=== PATIENT | female | born 1955 | race Caucasian/White ===

== ENCOUNTER 2024-05-28 12:10 | Inpatient (IN) ==
--- NOTE | 2024-05-28 14:39 | DR.NAUSEAF ---
HPI Time Seen Time Seen by Provider: 05/28/24 14:35 Primary Care Physician Primary Care Physician: Keely Complaints Chief Complaint Doctors Comments: 68-year-old female, history of breast cancer, currently undergoing chemo, last chemo treatment 7 days ago, complains of continued vomiting 6-7 times daily since. Admits to chills the past couple days. Denies other symptoms. Denies abdominal pain, chest pain, dyspnea, cough, urinary symptoms. Chief Complaint:: Pt states she's been throwing up for the last three days and has no appetite. Admits chills and a stomach ache. Denies fever. Pt is on Chemo for breast CA. Last treatment was lsat . Self Treatment fo Chief Complaint: negar @ 1000 today COVID-19 Coronavirus risk:travel/contact w/high risk person: No Has patient experienced Coronavirus symptoms: No Source History Provided: Patient Mode of Arrival Mode of Arrival: Ambulatory Timing Onset of Chief Complaint: 05/25/24 PMH PMH Past Medical History: Yes Past Medical History: Cancer Past Medical History Comment: Breast CA Past Surgical History: Yes Surgical History: and Hysterectomy Family History History of Family Medical Conditions: Yes Family Medical History: Cancer Social History Alcohol Use: None Do you use any recreational Drugs:: No Lives With: Spouse Lives Where: Home Travel Risk Coronavirus risk:travel/contact w/high risk person: No Has patient experienced Coronavirus symptoms: No Infectious screening Have you traveled outside the country in the last 6 months?: No Isolation: Standard ROS Review of Systems Constitutional: Chills; negative Fever Gastrointestinal/Abdominal: Vomiting; negative Abdominal Pain or Diarrhea Genitourinary: negative Dysuria, Frequency, Hematuria or Pain PE Vital Signs Vitals: Vital Signs Pulse Rate 127 Pulse Rate 129 Pulse Rate 129 Pulse Rate 130 Pulse Rate 130 Pulse Rate 128 Pulse Rate 135 Pulse Rate 132 Pulse Rate 131 Pulse Rate 130 Pulse Rate 130 Pulse Rate 137 Pulse Rate 137 Pulse Rate 133 Pulse Rate 145 Pulse Rate 138 Pulse Rate 138 Pulse Rate 138 Pulse Rate 138 Pulse Rate 140 Pulse Rate 141 Pulse Rate 141 Pulse Rate 141 Pulse Rate 144 Pulse Rate 140 Pulse Rate 140 Pulse Rate 138 Pulse Rate 136 Pulse Rate 134 Pulse Rate 124 Pulse Rate 115 Pulse Rate 104 Pulse Rate 102 Pulse Rate 98 Pulse Rate 100 Pulse Rate 100 Pulse Rate 110 Pulse Rate 101 Pulse Rate 110 Pulse Rate 109 Pulse Rate 108 Pulse Rate 111 Pulse Rate 107 Pulse Rate 110 Pulse Rate 112 Respiratory Rate 50 Respiratory Rate 50 Respiratory Rate 50 Respiratory Rate 28 Respiratory Rate 54 Respiratory Rate 82 Respiratory Rate 78 Respiratory Rate 28 Respiratory Rate 26 Respiratory Rate 31 Respiratory Rate 36 Respiratory Rate 36 Respiratory Rate 39 Respiratory Rate 30 Respiratory Rate 32 Respiratory Rate 34 Respiratory Rate 28 Respiratory Rate 31 Respiratory Rate 28 Respiratory Rate 32 Respiratory Rate 33 Respiratory Rate 31 Respiratory Rate 32 Respiratory Rate 33 Respiratory Rate 32 Respiratory Rate 32 Respiratory Rate 40 Respiratory Rate 119 Respiratory Rate 30 Respiratory Rate 29 Respiratory Rate 27 Respiratory Rate 30 Respiratory Rate 25 Respiratory Rate 28 Respiratory Rate 21 Respiratory Rate 30 Respiratory Rate 25 Respiratory Rate 28 Respiratory Rate 25 Respiratory Rate 40 Respiratory Rate 51 Respiratory Rate 30 Respiratory Rate 31 Respiratory Rate 45 Respiratory Rate 58 Respiratory Rate 34 Blood Pressure 115/56 Blood Pressure 92/55 Blood Pressure 92/55 Blood Pressure 92/55 Blood Pressure 92/55 Blood Pressure 92/55 Blood Pressure 97/52 Blood Pressure 97/52 Blood Pressure 106/57 Blood Pressure 104/61 Blood Pressure 103/57 Blood Pressure 102/53 Blood Pressure 106/55 Blood Pressure 106/59 Blood Pressure 116/54 Blood Pressure 107/57 Blood Pressure 114/54 Blood Pressure 96/53 Blood Pressure 95/51 Blood Pressure 89/49 Blood Pressure 83/48 Blood Pressure 80/43 Blood Pressure 80/43 Blood Pressure 79/30 Blood Pressure 114/56 Blood Pressure 127/61 Blood Pressure 134/63 Blood Pressure 151/66 Blood Pressure 151/66 Blood Pressure 164/74 Blood Pressure 153/71 Blood Pressure 153/68 Blood Pressure 159/69 Blood Pressure 152/71 Blood Pressure 161/71 Blood Pressure 167/74 O2 Sat by Pulse Oximetry 99 O2 Sat by Pulse Oximetry 99 O2 Sat by Pulse Oximetry 99 O2 Sat by Pulse Oximetry 99 O2 Sat by Pulse Oximetry 99 O2 Sat by Pulse Oximetry 99 O2 Sat by Pulse Oximetry 98 O2 Sat by Pulse Oximetry 100 O2 Sat by Pulse Oximetry 100 O2 Sat by Pulse Oximetry 100 O2 Sat by Pulse Oximetry 100 O2 Sat by Pulse Oximetry 100 O2 Sat by Pulse Oximetry 99 O2 Sat by Pulse Oximetry 98 O2 Sat by Pulse Oximetry 98 O2 Sat by Pulse Oximetry 97 O2 Sat by Pulse Oximetry 87 O2 Sat by Pulse Oximetry 100 O2 Sat by Pulse Oximetry 99 O2 Sat by Pulse Oximetry 98 O2 Sat by Pulse Oximetry 96 O2 Sat by Pulse Oximetry 96 O2 Sat by Pulse Oximetry 97 O2 Sat by Pulse Oximetry 95 O2 Sat by Pulse Oximetry 96 O2 Sat by Pulse Oximetry 92 O2 Sat by Pulse Oximetry 93 O2 Sat by Pulse Oximetry 92 O2 Sat by Pulse Oximetry 91 O2 Sat by Pulse Oximetry 90 O2 Sat by Pulse Oximetry 94 O2 Sat by Pulse Oximetry 93 O2 Sat by Pulse Oximetry 95 O2 Sat by Pulse Oximetry 96 O2 Sat by Pulse Oximetry 98 O2 Sat by Pulse Oximetry 98 O2 Sat by Pulse Oximetry 95 O2 Sat by Pulse Oximetry 96 O2 Sat by Pulse Oximetry 96 O2 Sat by Pulse Oximetry 94 O2 Sat by Pulse Oximetry 92 O2 Sat by Pulse Oximetry 107 O2 Sat by Pulse Oximetry 98 O2 Sat by Pulse Oximetry 99 General Limitations: No Limitations General Appearance: Alert and In No Apparent Distress Head Head Exam: Normal Inspection Eyes Eye exam: Normal Appearance ENT ENT Exam: Normal Exam Neck Neck Exam: Normal Inspection Chest Chest Inspection: Normal Inspection Respiratory Respiratory Exam: Normal Lung Sounds Bilat Respiratory Exam: Bilateral: Clear to Auscultation Cardiovascular Cardiovascular Exam: Regular Rate and Normal Rhythm Abdominal Exam Abdominal Exam: Normal Inspection, Normal Bowel Sounds and Soft Extremities Extremities Exam: Normal Inspection Back Back Exam: Normal Inspection Neurologic Neurological Exam: Alert and Oriented X3 Psychiatric Psychiatric Exam: Normal Affect and Normal Mood Skin Skin Exam: Warm, Dry, Intact and Normal Color ROR Labs Reviewed 05/28/24 14:49 05/28/24 14:49 Laboratory: WBC 3.6 X10^3/uL (3.6-10.0) 05/28/24 14:49 RBC 3.59 X10^6/uL (3.5-5.4) 05/28/24 14:49 Hgb 11.9 g/dL (12.0-16.0) L 05/28/24 14:49 Hct 34.0 % (36.0-47.0) L 05/28/24 14:49 MCV 94.8 fL (80.0-100.0) 05/28/24 14:49 MCH 33.2 pg (27.0-34.0) 05/28/24 14:49 MCHC 35.0 g/dL (33.0-35.0) 05/28/24 14:49 RDW 17.5 % (11.6-16.5) H 05/28/24 14:49 Plt Count 123 X10^3/uL (150.0-450.0) L 05/28/24 14:49 Plt Count Comment Adequate (ADEQUATE) 05/28/24 14:49 MPV 8.7 fL (7.4-11.0) 05/28/24 14:49 Neut % (Auto) 63.3 % (42.0-75.0) 05/28/24 14:49 Lymph % (Auto) 26.0 % (21.0-51.0) 05/28/24 14:49 [place] % (Auto) 10.3 % (0.0-13.0) 05/28/24 14:49 Eos % (Auto) 0.0 % (0.9-2.9) L 05/28/24 14:49 Baso % (Auto) 0.4 % (0.2-1.0) 05/28/24 14:49 Neut # (Auto) 2.2 x10^3/uL (2.2-4.8) 05/28/24 14:49 Lymph # (Auto) 0.9 X10^3/uL (1.3-2.9) L 05/28/24 14:49 [place] # (Auto) 0.4 x10^3/uL (0.3-0.8) 05/28/24 14:49 Eos # (Auto) 0.0 x10^3/uL (0.0-0.2) 05/28/24 14:49 Baso # (Auto) 0.0 X10^3/uL (0.0-0.1) 05/28/24 14:49 Absolute Nucleated RBC 0.1 /100WBC 05/28/24 14:49 Total Counted 100 05/28/24 14:49 Neutrophils % (Manual) 63 % (39-76) 05/28/24 14:49 Band Neutrophils % 3 % (0-10) 05/28/24 14:49 Lymphocytes % (Manual) 22 % (13-43) 05/28/24 14:49 Monocytes % (Manual) 12 % (4-9) H 05/28/24 14:49 Plt Morphology Comment Normal (NORMAL) 05/28/24 14:49 RBC Morphology Normal (NORMAL) 05/28/24 14:49 Sodium 138 mmol/L (136-145) 05/28/24 14:49 Corrected Sodium 139 mmol/L (136-145) 05/28/24 14:49 Potassium 2.7 mmol/L (3.5-5.1) L* 05/28/24 14:49 Chloride 91 mmol/L (98-107) L 05/28/24 14:49 Carbon Dioxide 41.5 mmol/L (21-32) H 05/28/24 14:49 BUN 31 mg/dL (7-18) H 05/28/24 14:49 Creatinine 1.12 mg/dL (0.55-1.02) H 05/28/24 14:49 Est GFR (MDRD) Af Amer > 60 (>60) 05/28/24 14:49 Est GFR (MDRD) Non-Af 52 (>60) L 05/28/24 14:49 Glucose 136 mg/dL (65-99) H 05/28/24 14:49 Lactic Acid 5.8 mmol/L (0.4-2.0) H* 05/28/24 18:38 Calcium 9.3 mg/dL (8.5-10.1) 05/28/24 14:49 Corrected Calcium TNP 05/28/24 14:49 Magnesium 1.2 mg/dL (2.0-2.9) L 05/28/24 18:00 Total Bilirubin 0.90 mg/dL (0.2-1.0) 05/28/24 14:49 AST 20 Units/L (15-37) 05/28/24 14:49 ALT 28 Units/L (12-78) 05/28/24 14:49 Alkaline Phosphatase 148 Units/L (46-116) H 05/28/24 14:49 Creatine Kinase 24 Units/L (26-192) L 05/28/24 18:00 Troponin I High Sens 26.5 ng/L (4.0-60.0) 05/28/24 18:00 Total Protein 7.7 g/dL (6.4-8.2) 05/28/24 14:49 Albumin 4.2 g/dL (3.4-5.0) 05/28/24 14:49 Globulin 3.5 g/dL (2.5-4.5) 05/28/24 14:49 Albumin/Globulin Ratio 1.2 Ratio (1.1-2.1) 05/28/24 14:49 Lipase 43 Units/L (16-77) 05/28/24 14:49 Specimen Type Clean catch urine 05/28/24 15:00 Urine Color Dark yellow (YELLOW) 05/28/24 15:00 Urine Appearance Slightly hazy (CLEAR) 05/28/24 15:00 Urine pH 6.0 (5.0 - 8.0) 05/28/24 15:00 Ur Specific [place] 1.015 (1.000-1.030) 05/28/24 15:00 Urine Protein 3+ (NEGATIVE) 05/28/24 15:00 Urine Glucose (UA) 1+ (NEGATIVE) 05/28/24 15:00 Urine Ketones Negative (NEGATIVE) 05/28/24 15:00 Urine Blood 1+ (NEGATIVE) 05/28/24 15:00 Urine Nitrite Negative (NEGATIVE) 05/28/24 15:00 Urine Bilirubin Negative (NEGATIVE) 05/28/24 15:00 Urine Urobilinogen 1+ (NORMAL) 05/28/24 15:00 Ur Leukocyte Esterase 2+ (NEGATIVE) 05/28/24 15:00 Urine RBC 3-5 /HPF (0-3) A 05/28/24 15:00 Urine WBC 3-5 /HPF (0-5) 05/28/24 15:00 Ur Squamous Epith Cells Few /HPF (NEGATIVE) 05/28/24 15:00 Amorphous Sediment 2+ /HPF (NEGATIVE) 05/28/24 15:00 Urine Bacteria Negative /HPF (NEGATIVE) 05/28/24 15:00 Urine Mucus Many /HPF (NEGATIVE) 05/28/24 15:00 Ur Culture Indicated? No/not indicated 05/28/24 15:00 Opioid Opioid Risk Tool Age (Norbert box if 16-45): No History of Preadolescent Sexual Abuse: No Total: 0 Total Score Risk Category: Low Risk Copyright: Clifton ALVARADO predicting aberrant behaviors Discharge Plan Diagnosis Discharge Problem: Vomiting, Urinary tract infection, Hypokalemia, Breast cancer, Hypomagnesemia Discharge Plan Patient Disposition: 01 HOME, SELF-CARE Condition: Stable Orders to Discharge Patient Discharge Orders: Transfer (Routine); Ordered 05/28/24 Ordered By: Adrian Purvis
[2024-05-28 14:58] LABS: HEMOGLOBIN 11.9 g/dL (12.0-16.0)
[2024-05-28] MEDS: NS 1,000 ML IV 1,000 ML IV ONE ×3 (15:00→19:42)
[2024-05-28] MEDS: ZOFRAN INJ 4 MG VIAL IVP ONE ×2 (15:00→15:13)
[2024-05-28 15:01] LABS: LYMPHOCYTES # (AUTO) 0.9 X10^3/uL (1.3-2.9); MONOCYTES # (AUTO) 0.4 x10^3/uL (0.3-0.8); WHITE BLOOD COUNT 3.6 X10^3/uL (3.6-10.0)
[2024-05-28 15:06] LABS: BASOPHILS % (AUTO) 0.4 % (0.2-1.0); MEAN CORPUSCULAR HEMOGLOBIN 33.2 pg (27.0-34.0); MEAN CORPUSCULAR VOLUME 94.8 fL (80.0-100.0); MEAN PLATELET VOLUME 8.7 fL (7.4-11.0); MONOCYTES % (AUTO) 10.3 % (0.0-13.0); NEUTROPHILS # (AUTO) 2.2 x10^3/uL (2.2-4.8); NEUTROPHILS % (AUTO) 63.3 % (42.0-75.0); PLATELET COUNT 123 X10^3/uL (150.0-450.0); RED BLOOD COUNT 3.59 X10^6/uL (3.5-5.4); RED CELL DISTRIBUTION WIDTH 17.5 % (11.6-16.5)
[2024-05-28 15:14] LABS: ALANINE AMINOTRANSFERASE 28 Units/L (12-78); ALBUMIN 4.2 g/dL (3.4-5.0); ALKALINE PHOSPHATASE 148 Units/L (46-116); ASPARTATE AMINO TRANSFERASE 20 Units/L (15-37); BLOOD UREA NITROGEN 31 mg/dL (7-18); CALCIUM 9.3 mg/dL (8.5-10.1); CARBON DIOXIDE 41.5 mmol/L (21-32); CHLORIDE 91 mmol/L (98-107); COR NA(FOR HYPERGLY) 139 mmol/L (136-145); CREATININE 1.12 mg/dL (0.55-1.02); GLUCOSE 136 mg/dL (65-99); LIPASE 43 Units/L (16-77); SODIUM 138 mmol/L (136-145); TOTAL PROTEIN 7.7 g/dL (6.4-8.2); eGFR NON BLACK RACES 52 (>60)
[2024-05-28] MEDS: MORPHINE SULFATE INJ 4 MG IVP ONE (15:16)
[2024-05-28 15:18] LABS: BAND NEUTROPHILS % 3 % (0-10)
[2024-05-28 15:19] LABS: PLATELET MORPHOLOGY COMMENT NORMAL (NORMAL)
[2024-05-28 15:21] LABS: POTASSIUM 2.7 mmol/L (3.5-5.1)
[2024-05-28 15:30] LABS: BILIRUBIN,URINE NEGATIVE (NEGATIVE); BLOOD/HEMOGLOBIN,URINE 1+ (NEGATIVE); GLUCOSE, URINE 1+ (NEGATIVE); KETONES,URINE NEGATIVE (NEGATIVE); LEUKOCYTE ESTERASE ,URINE 2+ (NEGATIVE); NITRITES,URINE NEGATIVE (NEGATIVE); PROTEIN,URINE 3+ (NEGATIVE); UROBILINOGEN,URINE 1+ (NORMAL)
[2024-05-28 15:35] LABS: APPEARANCE,URINE SLIGHTLY HAZY (CLEAR); COLOR,URINE DARK YELLOW (YELLOW)
[2024-05-28] MEDS: K-DUR TAB 20 MEQ PO ONE ×2 (15:47→17:09)
[2024-05-28 16:08] LABS: BACTERIA,URINE NEGATIVE /HPF (NEGATIVE); SQUAMOUS EPITHELIAL CELL,UR FEW /HPF (NEGATIVE)
--- NOTE | 2024-05-28 16:43 | EKG ---
Test Reason : elevated heart rate Blood Pressure : */* mmHG Vent. Rate : 134 BPM Atrial Rate : 134 BPM P-R Int : 104 ms QRS Dur : 84 ms QT Int : 394 ms P-R-T Axes : 39 63 37 degrees QTc Int : 588 ms Sinus tachycardia with short [place] Marked ST abnormality, possible inferolateral subendocardial injury Abnormal ECG No previous ECGs available Confirmed by Itz Laboy MD ([id number]) on 05/29/2024 7:21:25 AM Referred By: Confirmed By: Itz Laboy MD
--- NOTE | 2024-05-28 18:48 | RAD ---
EXAM:CHEST, 1 VIEWHISTORY:Pt states she's been throwing up for the last three days and has no appetite. Admits chills and a stomach ache. Denies fever. Pt is on Chemo for breast CA. Last treatment was lsat;COMPARISON:No relevant prior studies were available for comparison at the time of interpretation.TECHNIQUE:CHEST, 1 VIEWFINDINGS:Chest:Lines and tubes: Right sided implanted port with tip in satisfactory position. Cardiac leads overlie the chestMediastinum: Cardiac and mediastinal shadow is within normal limits for size and contour.Pulmonary vessels: No pulmonary vascular congestion.Lung tamez: No suspicious airspace opacity.Pleura: No effusion. No pneumothorax.Bones and soft tissues: No acute osseous or soft tissue abnormality.IMPRESSION:1. No acute cardiopulmonary abnormalityTHIS IS AN ELECTRONICALLY VERIFIED FINAL [id number]/2024 6:45 PM - Electronically signed by Alex Soria MD
[2024-05-28] MEDS ORDERED: MAGNESIUM SULFATE 50% INJ VIAL IV ONE (19:15)
[2024-05-28] MEDS ORDERED: ROCEPHIN VIAL 2 GRAMS IV ONE (19:19)
[2024-05-28] MEDS: MAGNESIUM SULFATE 1 GRAM/100 mL PREMIX 1 G/100 ML BAG IV SCH (19:41)
[2024-05-28] MEDS: ROCEPHIN VIAL 1 GRAM 2 G in NS 100 ML IV 100 ML IV ONE (19:43)
[2024-05-28] MEDS ORDERED: CONSULT PHARMACY - POTASSIUM & MAGNESIUM XX SCH (20:43)
[2024-05-28] MEDS: NS 1,000 ML IV 1,000 ML IV SCH (21:09)
[2024-05-28] MEDS ORDERED: MAGNESIUM SULFATE 1 GRAM/100 mL PREMIX 1 G/100 ML BAG IV SCH (22:00)
[2024-05-28] MEDS: K-RIDER 10 MEQ/100 ML WATER 10 MEQ/100 ML BAG IV SCH (23:04)
[2024-05-28] MEDS: NS 1,000 ML IV 1,000 ML ONE (23:43)
[2024-05-28] MEDS: NS 100 ML IV 100 ML ONE (23:43)
[2024-05-28] MEDS: ROCEPHIN VIAL 1 GRAM ONE (23:43)
[2024-05-29] MEDS: ZOFRAN INJ 4 MG VIAL IVP PRN (03:01)
[2024-05-29 05:38] LABS: BASOPHILS % (AUTO) 0.1 % (0.2-1.0); EOSINOPHILS % (AUTO) 0.1 % (0.9-2.9); HEMATOCRIT 28.8 % (36.0-47.0); HEMOGLOBIN 10.2 g/dL (12.0-16.0); LYMPHOCYTES # (AUTO) 0.4 X10^3/uL (1.3-2.9); LYMPHOCYTES % (AUTO) 13.7 % (21.0-51.0); MEAN CORPUSCULAR HEMOGLOBIN 33.8 pg (27.0-34.0); MEAN CORPUSCULAR HGB CONC 35.4 g/dL (33.0-35.0); MEAN CORPUSCULAR VOLUME 95.7 fL (80.0-100.0); MEAN PLATELET VOLUME 9.1 fL (7.4-11.0); MONOCYTES # (AUTO) 0.4 x10^3/uL (0.3-0.8); MONOCYTES % (AUTO) 15.2 % (0.0-13.0); NEUTROPHILS # (AUTO) 1.9 x10^3/uL (2.2-4.8); NEUTROPHILS % (AUTO) 70.9 % (42.0-75.0); PLATELET COUNT 61 X10^3/uL (150.0-450.0); RED BLOOD COUNT 3.01 X10^6/uL (3.5-5.4); RED CELL DISTRIBUTION WIDTH 17.7 % (11.6-16.5); WHITE BLOOD COUNT 2.6 X10^3/uL (3.6-10.0)
[2024-05-29 05:47] LABS: ALBUMIN 3.1 g/dL (3.4-5.0); CALCIUM 8.1 mg/dL (8.5-10.1); CARBON DIOXIDE 33.1 mmol/L (21-32); COR CA(FOR HYPOALB) 8.8 mg/dL (8.5-10.1); CREATININE 1.17 mg/dL (0.55-1.02); MAGNESIUM 2.5 mg/dL (2.0-2.9); TOTAL PROTEIN 6.1 g/dL (6.4-8.2)
[2024-05-29 05:50] LABS: POTASSIUM 2.8 mmol/L (3.5-5.1)
[2024-05-29 06:45] LABS: ANISOCYTOSIS SLIGHT; PLATELET MORPHOLOGY COMMENT NORMAL (NORMAL)
[2024-05-29] MEDS ORDERED: CONSULT PHARMACY - POTASSIUM & MAGNESIUM XX SCH (07:00)
[2024-05-29] MEDS: K-RIDER 10 MEQ/100 ML WATER 10 MEQ/100 ML BAG IV SCH (08:24)
[2024-05-29 09:27] VITALS: BMI 30.3
[2024-05-29] MEDS: PROTONIX INJ 40 MG VIAL IVP SCH (12:26)
[2024-05-29] MEDS: NS + KCL 20 MEQ/L 1,000 ML IV SCH (12:26)
[2024-05-29 13:15] LABS: CRYPTOSPORIDIUM PARVUM ANTIGEN NEGATIVE (NEGATIVE); GIARDIA LAMBLIA ANTIGEN NEGATIVE (NEGATIVE)
[2024-05-29] MEDS: ROCEPHIN VIAL 1 GRAM 1 G in NS 100 ML IV 100 ML IV SCH (16:24)
--- NOTE | 2024-05-29 17:58 | DR.H&P ---
H&P History & Physical for Day of: H&P Date: 05/28/24 Chief Complaint Chief Complaint: N/V/D History of Present Illness History of Present Illness: 68-year-old female, history of breast cancer, currently undergoing chemo, last chemo treatment 7 days ago, complains of continued vomiting 6-7 times daily since. Admits to chills the past couple days. Denies other symptoms. Denies abdominal pain, chest pain, dyspnea, cough, urinary symptoms. Past Medical History Past Medical History: Cancer Past Surgical History Surgical History: and Hysterectomy Family History Family Medical History: Cancer and Hypertension Social History Alcohol Use: None Drug Use: None Medications Home Medications: Home Medications Medication Instructions Recorded Confirmed Type amlodipine 5 mg tablet 5 mg PO QDAY 05/29/24 05/29/24 History ondansetron 4 mg disintegrating 4 mg PO PRN PRN Nausea And Vomiting 05/29/24 05/29/24 History tablet Allergies Allergies Allergy/AdvReac Type Severity Reaction Status Date / Time No Known Drug Allergies Allergy Verified 05/28/24 12:17 Labs 05/29/24 05:20 05/29/24 05:20 Labs: 05/29/24 11:30 Stool - Final Laboratory WBC 2.6 X10^3/uL (3.6-10.0) L 05/29/24 05:20 RBC 3.01 X10^6/uL (3.5-5.4) L 05/29/24 05:20 Hgb 10.2 g/dL (12.0-16.0) L 05/29/24 05:20 Hct 28.8 % (36.0-47.0) L 05/29/24 05:20 MCV 95.7 fL (80.0-100.0) 05/29/24 05:20 MCH 33.8 pg (27.0-34.0) 05/29/24 05:20 MCHC 35.4 g/dL (33.0-35.0) H 05/29/24 05:20 RDW 17.7 % (11.6-16.5) H 05/29/24 05:20 Plt Count 61 X10^3/uL (150.0-450.0) L 05/29/24 05:20 Plt Count Comment Decreased (ADEQUATE) A 05/29/24 05:20 MPV 9.1 fL (7.4-11.0) 05/29/24 05:20 Neut % (Auto) 70.9 % (42.0-75.0) 05/29/24 05:20 Lymph % (Auto) 13.7 % (21.0-51.0) L 05/29/24 05:20 [place] % (Auto) 15.2 % (0.0-13.0) H 05/29/24 05:20 Eos % (Auto) 0.1 % (0.9-2.9) L 05/29/24 05:20 Baso % (Auto) 0.1 % (0.2-1.0) L 05/29/24 05:20 Neut # (Auto) 1.9 x10^3/uL (2.2-4.8) L 05/29/24 05:20 Lymph # (Auto) 0.4 X10^3/uL (1.3-2.9) L 05/29/24 05:20 [place] # (Auto) 0.4 x10^3/uL (0.3-0.8) 05/29/24 05:20 Eos # (Auto) 0.0 x10^3/uL (0.0-0.2) 05/29/24 05:20 Baso # (Auto) 0.0 X10^3/uL (0.0-0.1) 05/29/24 05:20 Absolute Nucleated RBC 0.1 /100WBC 05/29/24 05:20 Total Counted 100 05/29/24 05:20 Neutrophils % (Manual) 64 % (39-76) 05/29/24 05:20 Band Neutrophils % 3 % (0-10) 05/28/24 14:49 Lymphocytes % (Manual) 24 % (13-43) 05/29/24 05:20 Monocytes % (Manual) 12 % (4-9) H 05/29/24 05:20 Plt Morphology Comment Normal (NORMAL) 05/29/24 05:20 RBC Morphology Abnormal (NORMAL) A 05/29/24 05:20 Anisocytosis Slight A 05/29/24 05:20 Sodium 139 mmol/L (136-145) 05/29/24 05:20 Corrected Sodium 140 mmol/L (136-145) 05/29/24 05:20 Potassium 2.8 mmol/L (3.5-5.1) L* 05/29/24 05:20 Chloride 98 mmol/L (98-107) 05/29/24 05:20 Carbon Dioxide 33.1 mmol/L (21-32) H 05/29/24 05:20 BUN 28 mg/dL (7-18) H 05/29/24 05:20 Creatinine 1.17 mg/dL (0.55-1.02) H 05/29/24 05:20 Est GFR (MDRD) Af Amer 60 (>60) 05/29/24 05:20 Est GFR (MDRD) Non-Af 49 (>60) L 05/29/24 05:20 Glucose 145 mg/dL (65-99) H 05/29/24 05:20 Lactic Acid 2.0 mmol/L (0.4-2.0) 05/29/24 15:56 Calcium 8.1 mg/dL (8.5-10.1) L 05/29/24 05:20 Corrected Calcium 8.8 mg/dL (8.5-10.1) 05/29/24 05:20 Magnesium 2.5 mg/dL (2.0-2.9) 05/29/24 05:20 Total Bilirubin 0.70 mg/dL (0.2-1.0) 05/29/24 05:20 AST 22 Units/L (15-37) 05/29/24 05:20 ALT 25 Units/L (12-78) 05/29/24 05:20 Alkaline Phosphatase 123 Units/L (46-116) H 05/29/24 05:20 Creatine Kinase 24 Units/L (26-192) L 05/28/24 18:00 Troponin I High Sens 26.5 ng/L (4.0-60.0) 05/28/24 18:00 Total Protein 6.1 g/dL (6.4-8.2) L 05/29/24 05:20 Albumin 3.1 g/dL (3.4-5.0) L 05/29/24 05:20 Globulin 3.0 g/dL (2.5-4.5) 05/29/24 05:20 Albumin/Globulin Ratio 1.0 Ratio (1.1-2.1) L 05/29/24 05:20 Lipase 43 Units/L (16-77) 05/28/24 14:49 Specimen Type Clean catch urine 05/28/24 15:00 Urine Color Dark yellow (YELLOW) 05/28/24 15:00 Urine Appearance Slightly hazy (CLEAR) 05/28/24 15:00 Urine pH 6.0 (5.0 - 8.0) 05/28/24 15:00 Ur Specific [place] 1.015 (1.000-1.030) 05/28/24 15:00 Urine Protein 3+ (NEGATIVE) 05/28/24 15:00 Urine Glucose (UA) 1+ (NEGATIVE) 05/28/24 15:00 Urine Ketones Negative (NEGATIVE) 05/28/24 15:00 Urine Blood 1+ (NEGATIVE) 05/28/24 15:00 Urine Nitrite Negative (NEGATIVE) 05/28/24 15:00 Urine Bilirubin Negative (NEGATIVE) 05/28/24 15:00 Urine Urobilinogen 1+ (NORMAL) 05/28/24 15:00 Ur Leukocyte Esterase 2+ (NEGATIVE) 05/28/24 15:00 Urine RBC 3-5 /HPF (0-3) A 05/28/24 15:00 Urine WBC 3-5 /HPF (0-5) 05/28/24 15:00 Ur Squamous Epith Cells Few /HPF (NEGATIVE) 05/28/24 15:00 Amorphous Sediment 2+ /HPF (NEGATIVE) 05/28/24 15:00 Urine Bacteria Negative /HPF (NEGATIVE) 05/28/24 15:00 Urine Mucus Many /HPF (NEGATIVE) 05/28/24 15:00 Ur Culture Indicated? No/not indicated 05/28/24 15:00 Stl Occult Blood (IFOB) Positive (NEGATIVE) A 05/29/24 11:30 Stl C. diff Tox B Gene Negative (NEGATIVE) 05/29/24 11:30 Stl C. diff [id number] Presumptive negative (NEGATIVE) 05/29/24 11:30 Cryptosporid parvum Ag Negative (NEGATIVE) 05/29/24 11:30 Giardia lamblia Ag Negative (NEGATIVE) 05/29/24 11:30 Review of Systems Constitutional: Chills and Weakness Eyes: No Symptoms Reported ENT: No Symptoms Reported Respiratory: SOB with Excertion Cardiovascular: No Symptoms Reported Gastrointestinal: Nausea, Vomiting, Abdominal Pain and Diarrhea Genitourinary: No Symptoms Reported Musculoskeletal: Back Pain Skin: No Symptoms Reported Neurological: Weakness (MILD DIFFUSE) Physical Exam Vital Signs: Vital Signs Temperature 97.9 F Temperature 97.1 F Pulse Rate [Left Radial] 111 Pulse Rate [Left Radial] 113 Respiratory Rate 18 Respiratory Rate 19 Blood Pressure [Right Arm] 136/76 Blood Pressure [Right Arm] 129/63 O2 Sat by Pulse Oximetry 94 O2 Sat by Pulse Oximetry 92 Oriented: Normal Eyes: Normal Ear: Normal Nose: Normal Throat: Normal Respiratory: RLL Diminished and LLL Diminished Cardiovascular: Normal : Normal Auscultation: Bowel Sounds: Increased Palpation: Normal Tenderness: Diffuse Skin: Decreased Turgur Musculoskeletal: Back:Lumbar Psychiatric: Normal Mood Description: Calm Affect: Normal Speech Pattern: Clear and Appropriate Assessment/Plan (1) Acute gastroenteritis: Status: Acute Plan: ADMIT, IV HYDRATION ELECTROLYTE REPLACEMENT THERAPY PRN SUPPLEMENTAL O2 STOOL STUDIES VERIFY HOME MEDICATIONS (2) Urinary tract infection: Status: Acute (3) Hypokalemia: Status: Acute (4) Breast cancer: Status: Acute (5) Vomiting: Status: Acute (6) Hypomagnesemia: Status: Acute
[2024-05-29] MEDS: BENTYL CAP 10 MG PO SCH (18:22)
[2024-05-29] MEDS: K-DUR TAB 20 MEQ PO SCH (21:07)
[2024-05-30 06:12] LABS: ALANINE AMINOTRANSFERASE 24 Units/L (12-78); ALBUMIN 2.5 g/dL (3.4-5.0); ALKALINE PHOSPHATASE 102 Units/L (46-116); ASPARTATE AMINO TRANSFERASE 17 Units/L (15-37); BLOOD UREA NITROGEN 18 mg/dL (7-18); CALCIUM 7.9 mg/dL (8.5-10.1); CARBON DIOXIDE 24.6 mmol/L (21-32); CHLORIDE 106 mmol/L (98-107); COR CA(FOR HYPOALB) 9.1 mg/dL (8.5-10.1); CREATININE 0.67 mg/dL (0.55-1.02); GLUCOSE 105 mg/dL (65-99); MAGNESIUM 2.3 mg/dL (2.0-2.9); SODIUM 140 mmol/L (136-145); TOTAL PROTEIN 5.5 g/dL (6.4-8.2); eGFR NON BLACK RACES > 60 (>60)
[2024-05-30 06:16] LABS: BASOPHILS % (AUTO) 0.3 % (0.2-1.0); EOSINOPHILS % (AUTO) 0.2 % (0.9-2.9); HEMATOCRIT 24.2 % (36.0-47.0); HEMOGLOBIN 8.5 g/dL (12.0-16.0); LYMPHOCYTES % (AUTO) 24.9 % (21.0-51.0); MEAN CORPUSCULAR HEMOGLOBIN 33.6 pg (27.0-34.0); MEAN CORPUSCULAR HGB CONC 35.3 g/dL (33.0-35.0); MEAN CORPUSCULAR VOLUME 95.1 fL (80.0-100.0); MEAN PLATELET VOLUME 9.6 fL (7.4-11.0); MONOCYTES # (AUTO) 0.5 x10^3/uL (0.3-0.8); MONOCYTES % (AUTO) 11.9 % (0.0-13.0); NEUTROPHILS # (AUTO) 2.5 x10^3/uL (2.2-4.8); NEUTROPHILS % (AUTO) 62.7 % (42.0-75.0); PLATELET COUNT 61 X10^3/uL (150.0-450.0); RED BLOOD COUNT 2.54 X10^6/uL (3.5-5.4); RED CELL DISTRIBUTION WIDTH 16.7 % (11.6-16.5); WHITE BLOOD COUNT 3.9 X10^3/uL (3.6-10.0)
[2024-05-30 06:23] LABS: POTASSIUM 2.9 mmol/L (3.5-5.1)
[2024-05-30] MEDS ORDERED: CONSULT PHARMACY - POTASSIUM & MAGNESIUM XX SCH (07:00)
[2024-05-30 07:04] LABS: BAND NEUTROPHILS % 2 % (0-10); PLATELET MORPHOLOGY COMMENT NORMAL (NORMAL)
[2024-05-30] MEDS ORDERED: NS + KCL 40 MEQ/L 1,000 ML IV SCH (08:00)
--- NOTE | 2024-05-30 08:15 | RAD ---
EXAM:KUBHISTORY:abd pain, distention;COMPARISON:None.TECHNIQUE:Sup ine radiograph of the abdomenFINDINGS:Marked distention of the gastric lumen which is radiopaque indicating probable fluid distention. There is sparse bowel gas throughout the abdomen with small amounts of gas outlining the normal caliber right colon. No other conspicuous dilated bowel segments are demonstrated, within limitations of exam. Imaged lung bases are predominantly clear. No unusual intra-calcification forms are identified.IMPRESSION:Nonspecific bowel gas pattern with the severe fluid distention of the gastric lumen.Sparse bowel gas throughout the remainder of the abdomen with no additional pathologically distended bowel segments identified, within limitations of exam.Consider CT evaluation for more detailed characterization. Consider NG tube decompression of the gastric lumen.THIS IS AN ELECTRONICALLY VERIFIED FINAL [id number]/2024 8:11 AM - Electronically signed by Kingsley Melgoza MD
[2024-05-30] MEDS ORDERED: K-RIDER 10 MEQ/100 ML WATER 10 MEQ/100 ML BAG IV SCH (09:00)
[2024-05-30] MEDS: NS + KCL 20 MEQ/L 1,000 ML IV SCH (10:04)
[2024-05-30] MEDS: K-DUR TAB 20 MEQ PO SCH (10:08)
[2024-05-30] MEDS: READI-CAT 2 ONE (12:16)
--- NOTE | 2024-05-30 14:50 | CT ---
EXAMINATION: ABDCMEN/PELVIS WITH CON HISTORY: abd pain; COMPARISON: None. TECHNIQUE: Contiguous axial CT images of the abdomen and pelvis following intravenous contrast. Images reviewed in the axial imaging plane with reformatted sagittal and coronal images.The above CT scan was done w ith automated exposure control and the mA and kV was adjusted to obtain quality images according to p atient size. FINDINGS: The liver measures 15 by 18 by 16 cm. 1.7 cm cyst central density 15 Hounsfield units mid right hepa tic lobe. 1.1 cm cyst central density 7.5 Hounsfield units posterior segment right hepatic lobe. Gallbladder mildly distended. No bile duct dilatation. Pancreas, spleen, adrenal glands, abdominal aorta appear intact. Kidneys normal size and position. The abdominal aorta tapers normally. Details of the GI tract are limited since oral contrast was not used. Mild amount of liquid stool th roughout the colon. No evidence of acute appendicitis. Proximal and distal small bowel normal calib er. Moderate distention of the stomach with food and fluid. No ascites. Urinary bladder mildly distended with urine. Uterus is absent. Mild spondylosis. Images through lower chest demonstrate patchy infiltrates in both lower lobes, small pleural effusion s. IMPRESSION: Patchy infiltrates in both lower lobes of the chest with small bilateral pleural effusions. Couple of hepatic cysts. Mild amount of liquid stool throughout the colon. Hysterectomy. THIS IS AN ELECTRONICALLY VERIFIED FINAL REPORT 05/30/2024 2:43 PM - Electronically signed by Mali Werner MD
[2024-05-30] MEDS: OMNIPAQUE 350 mg/mL 100 mL BTL 100 ML ONE (15:07)
[2024-05-31 06:49] LABS: BASOPHILS % (AUTO) 0.3 % (0.2-1.0); EOSINOPHILS % (AUTO) 0.1 % (0.9-2.9); HEMOGLOBIN 7.8 g/dL (12.0-16.0); LYMPHOCYTES # (AUTO) 1.2 X10^3/uL (1.3-2.9); MEAN PLATELET VOLUME 9.4 fL (7.4-11.0); MONOCYTES # (AUTO) 0.3 x10^3/uL (0.3-0.8); RED CELL DISTRIBUTION WIDTH 17.3 % (11.6-16.5)
[2024-05-31 06:57] LABS: HEMATOCRIT 22.3 % (36.0-47.0); MEAN CORPUSCULAR HEMOGLOBIN 33.3 pg (27.0-34.0); MEAN CORPUSCULAR HGB CONC 34.9 g/dL (33.0-35.0); MEAN CORPUSCULAR VOLUME 95.5 fL (80.0-100.0); MONOCYTES % (AUTO) 4.7 % (0.0-13.0); NEUTROPHILS # (AUTO) 4.2 x10^3/uL (2.2-4.8); NEUTROPHILS % (AUTO) 73.9 % (42.0-75.0); PLATELET COUNT 64 X10^3/uL (150.0-450.0); RED BLOOD COUNT 2.34 X10^6/uL (3.5-5.4); WHITE BLOOD COUNT 5.7 X10^3/uL (3.6-10.0)
[2024-05-31 07:01] LABS: ALANINE AMINOTRANSFERASE 19 Units/L (12-78); ALBUMIN 2.3 g/dL (3.4-5.0); ALKALINE PHOSPHATASE 96 Units/L (46-116); ASPARTATE AMINO TRANSFERASE 15 Units/L (15-37); BLOOD UREA NITROGEN 3 mg/dL (7-18); CALCIUM 7.6 mg/dL (8.5-10.1); CARBON DIOXIDE 24.4 mmol/L (21-32); CHLORIDE 109 mmol/L (98-107); CREATININE 0.58 mg/dL (0.55-1.02); GLUCOSE 91 mg/dL (65-99); SODIUM 142 mmol/L (136-145); TOTAL PROTEIN 4.9 g/dL (6.4-8.2); eGFR NON BLACK RACES > 60 (>60)
[2024-05-31 07:03] LABS: POTASSIUM 2.8 mmol/L (3.5-5.1)
[2024-05-31 07:25] LABS: ANISOCYTOSIS SLIGHT; PLATELET MORPHOLOGY COMMENT NORMAL (NORMAL)
[2024-05-31] MEDS ORDERED: CONSULT PHARMACY - POTASSIUM & MAGNESIUM XX SCH ×2 (08:00→22:00)
[2024-05-31] MEDS: K-RIDER 10 MEQ/100 ML WATER 10 MEQ/100 ML BAG IV SCH (09:32)
[2024-05-31] MEDS: NS 500 ML IV 500 ML IV ONE (09:50)
[2024-05-31] MEDS: NS + KCL 20 MEQ/L 1,000 ML IV SCH (13:57)
[2024-05-31] MEDS: BENADRYL CAP/TAB 25 MG PO ONE ×2 (15:37→15:50)
[2024-05-31] MEDS: TYLENOL 325 MG TAB PO ONE ×2 (15:37→15:51)
[2024-05-31] MEDS: NS 250 ML IV 0 ML IV ONE (15:50)
[2024-05-31 19:44] LABS: HEMATOCRIT 28.1 % (36.0-47.0)
[2024-05-31 19:46] LABS: HEMOGLOBIN 9.9 g/dL (12.0-16.0)
--- NOTE | 2024-05-31 21:00 | PCM.PROG ---
Progress Note Progress Note for Day of Date of Exam: 05/31/24 Subjective Subjective: History/Background The patient has been receiving chemotherapy. She was admitted due to vomiting and dehydration. There's been a significant drop in hemoglobin levels over the past few days. Clinical Observations The patient reports feeling better and hungry. Vital signs: Blood pressure 114/56, heart rate 96 (improved from 120s at admission). Lab results: Hemoglobin: 7.8 (down from 8.5 yesterday, 10.2 two days ago, and 11.9 three days ago) White blood cell count: No elevation noted Potassium: 2.8 (critically low) BUN: 3 Creatinine: 0.58 Physical examination: Lungs sound good Bowel sounds present No leg swelling was observed The patient denies current nausea, vomiting, or urinary symptoms. The patient reports regular bowel movements and urination. Past Medical Family Social History Allergies: Allergies No Known Drug Allergies Allergy (Verified 05/28/24 12:17) Review of Systems ROS: No change since H&P Vital Signs and I&O's Vital Signs: Vital Signs Temperature 98.7 F Temperature 97.6 F Pulse Rate [Left Radial] 88 Pulse Rate [Left Radial] 100 Respiratory Rate 18 Respiratory Rate 18 Respiratory Rate 18 Respiratory Rate 18 Blood Pressure [Left Arm] 135/62 Blood Pressure [Left Arm] 121/59 O2 Sat by Pulse Oximetry 97 O2 Sat by Pulse Oximetry 96 Intake and Output: Intake & Output 05/29/24 05/30/24 05/31/24 06/01/24 11:59 11:59 11:59 11:59 Intake Total 741 / 741 4 / 2624 2131 Output Total 370 / 370 Balance 371 / 371 2623 / 4 2131 Physical Exam Oriented: Normal Eyes: Normal Ear: Normal Nose: Normal Throat: Normal Respiratory: Normal Cardiovascular: Normal : Normal Auscultation: Bowel Sounds: Increased Tenderness: Diffuse Skin: Decreased Turgur Musculoskeletal: Back:Lumbar Psychiatric: Normal Mood Description: Calm Affect: Normal Speech Pattern: Clear and Appropriate Laboratory and Diagnostics 05/31/24 19:36 05/31/24 05:35 Labs: 05/29/24 11:30 Stool Stool Culture - Final 05/29/24 11:30 Stool - Final 05/29/24 14:14 Urine,Clean Catch Urine Culture - Final 05/28/24 19:55 Blood Blood Culture - Preliminary 05/28/24 19:45 Blood Blood Culture - Preliminary Laboratory WBC 5.7 X10^3/uL (3.6-10.0) 05/31/24 05:35 RBC 2.34 X10^6/uL (3.5-5.4) L 05/31/24 05:35 Hgb 9.9 g/dL (12.0-16.0) L D 05/31/24 19:36 Hct 28.1 % (36.0-47.0) L 05/31/24 19:36 MCV 95.5 fL (80.0-100.0) 05/31/24 05:35 MCH 33.3 pg (27.0-34.0) 05/31/24 05:35 MCHC 34.9 g/dL (33.0-35.0) 05/31/24 05:35 RDW 17.3 % (11.6-16.5) H 05/31/24 05:35 Plt Count 64 X10^3/uL (150.0-450.0) L 05/31/24 05:35 Plt Count Comment Decreased (ADEQUATE) A 05/31/24 05:35 MPV 9.4 fL (7.4-11.0) 05/31/24 05:35 Neut % (Auto) 73.9 % (42.0-75.0) 05/31/24 05:35 Lymph % (Auto) 21.0 % (21.0-51.0) 05/31/24 05:35 [place] % (Auto) 4.7 % (0.0-13.0) 05/31/24 05:35 Eos % (Auto) 0.1 % (0.9-2.9) L 05/31/24 05:35 Baso % (Auto) 0.3 % (0.2-1.0) 05/31/24 05:35 Neut # (Auto) 4.2 x10^3/uL (2.2-4.8) 05/31/24 05:35 Lymph # (Auto) 1.2 X10^3/uL (1.3-2.9) L 05/31/24 05:35 [place] # (Auto) 0.3 x10^3/uL (0.3-0.8) 05/31/24 05:35 Eos # (Auto) 0.0 x10^3/uL (0.0-0.2) 05/31/24 05:35 Baso # (Auto) 0.0 X10^3/uL (0.0-0.1) 05/31/24 05:35 Absolute Nucleated RBC 0.2 /100WBC 05/31/24 05:35 Total Counted 100 05/31/24 05:35 Neutrophils % (Manual) 79 % (39-76) H 05/31/24 05:35 Band Neutrophils % 2 % (0-10) 05/30/24 05:13 Lymphocytes % (Manual) 16 % (13-43) 05/31/24 05:35 Monocytes % (Manual) 5 % (4-9) 05/31/24 05:35 Plt Morphology Comment Normal (NORMAL) 05/31/24 05:35 RBC Morphology Abnormal (NORMAL) A 05/31/24 05:35 Anisocytosis Slight A 05/31/24 05:35 Sodium 142 mmol/L (136-145) 05/31/24 05:35 Corrected Sodium TNP 05/31/24 05:35 Potassium 2.8 mmol/L (3.5-5.1) L* 05/31/24 05:35 Chloride 109 mmol/L (98-107) H 05/31/24 05:35 Carbon Dioxide 24.4 mmol/L (21-32) 05/31/24 05:35 BUN 3 mg/dL (7-18) L 05/31/24 05:35 Creatinine 0.58 mg/dL (0.55-1.02) 05/31/24 05:35 Est GFR (MDRD) Af Amer > 60 (>60) 05/31/24 05:35 Est GFR (MDRD) Non-Af > 60 (>60) 05/31/24 05:35 Glucose 91 mg/dL (65-99) 05/31/24 05:35 Lactic Acid 2.0 mmol/L (0.4-2.0) 05/29/24 15:56 Calcium 7.6 mg/dL (8.5-10.1) L 05/31/24 05:35 Corrected Calcium 9.0 mg/dL (8.5-10.1) 05/31/24 05:35 Magnesium 1.5 mg/dL (2.0-2.9) L 05/31/24 05:35 Total Bilirubin 0.30 mg/dL (0.2-1.0) 05/31/24 05:35 AST 15 Units/L (15-37) 05/31/24 05:35 ALT 19 Units/L (12-78) 05/31/24 05:35 Alkaline Phosphatase 96 Units/L (46-116) 05/31/24 05:35 Creatine Kinase 24 Units/L (26-192) L 05/28/24 18:00 Troponin I High Sens 26.5 ng/L (4.0-60.0) 05/28/24 18:00 Total Protein 4.9 g/dL (6.4-8.2) L 05/31/24 05:35 Albumin 2.3 g/dL (3.4-5.0) L 05/31/24 05:35 Globulin 2.6 g/dL (2.5-4.5) 05/31/24 05:35 Albumin/Globulin Ratio 0.9 Ratio (1.1-2.1) L 05/31/24 05:35 Lipase 43 Units/L (16-77) 05/28/24 14:49 Specimen Type Clean catch urine 05/28/24 15:00 Urine Color Dark yellow (YELLOW) 05/28/24 15:00 Urine Appearance Slightly hazy (CLEAR) 05/28/24 15:00 Urine pH 6.0 (5.0 - 8.0) 05/28/24 15:00 Ur Specific [place] 1.015 (1.000-1.030) 05/28/24 15:00 Urine Protein 3+ (NEGATIVE) 05/28/24 15:00 Urine Glucose (UA) 1+ (NEGATIVE) 05/28/24 15:00 Urine Ketones Negative (NEGATIVE) 05/28/24 15:00 Urine Blood 1+ (NEGATIVE) 05/28/24 15:00 Urine Nitrite Negative (NEGATIVE) 05/28/24 15:00 Urine Bilirubin Negative (NEGATIVE) 05/28/24 15:00 Urine Urobilinogen 1+ (NORMAL) 05/28/24 15:00 Ur Leukocyte Esterase 2+ (NEGATIVE) 05/28/24 15:00 Urine RBC 3-5 /HPF (0-3) A 05/28/24 15:00 Urine WBC 3-5 /HPF (0-5) 05/28/24 15:00 Ur Squamous Epith Cells Few /HPF (NEGATIVE) 05/28/24 15:00 Amorphous Sediment 2+ /HPF (NEGATIVE) 05/28/24 15:00 Urine Bacteria Negative /HPF (NEGATIVE) 05/28/24 15:00 Urine Mucus Many /HPF (NEGATIVE) 05/28/24 15:00 Ur Culture Indicated? No/not indicated 05/28/24 15:00 Stl Occult Blood (IFOB) Positive (NEGATIVE) A 05/29/24 11:30 Stl C. diff Tox B Gene Negative (NEGATIVE) 05/29/24 11:30 Stl C. diff [id number] Presumptive negative (NEGATIVE) 05/29/24 11:30 Cryptosporid parvum Ag Negative (NEGATIVE) 05/29/24 11:30 Giardia lamblia Ag Negative (NEGATIVE) 05/29/24 11:30 Blood Type O POSITIVE 05/31/24 13:06 Antibody Screen Negative 05/31/24 13:06 Crossmatch See Detail 05/31/24 13:06 Radiology Reviewed: Yes Plan (1) Acute gastroenteritis: Status: Acute Plan: ADMIT, IV HYDRATION ELECTROLYTE REPLACEMENT THERAPY PRN SUPPLEMENTAL O2 STOOL STUDIES VERIFY HOME MEDICATIONS Sunday, 31 May 2024 Plan/Recommendations Transition from clear liquids to soft diet and monitor tolerance. Administer potassium to address low levels (2.8). Reduce IV fluid rate to KVO (Keep Vein Open). Recheck potassium levels after lunch. Consider discharge this afternoon if potassium normalizes and the patient tolerates a soft diet well. (2) Urinary tract infection: Status: Acute (3) Hypokalemia: Status: Acute (4) Breast cancer: Status: Acute (5) Vomiting: Status: Acute (6) Hypomagnesemia: Status: Acute
[2024-05-31 21:29] LABS: MAGNESIUM 1.3 mg/dL (2.0-2.9); POTASSIUM 3.2 mmol/L (3.5-5.1)
[2024-05-31] MEDS: MAG-OX TAB PO SCH (22:12)
[2024-05-31] MEDS: K-DUR TAB 20 MEQ PO SCH (22:12)
[2024-06-01 05:07] VITALS: O2SAT 95
[2024-06-01 06:23] LABS: BASOPHILS % (AUTO) 0.2 % (0.2-1.0); EOSINOPHILS % (AUTO) 0.1 % (0.9-2.9); HEMATOCRIT 26.6 % (36.0-47.0); HEMOGLOBIN 9.5 g/dL (12.0-16.0); LYMPHOCYTES # (AUTO) 1.6 X10^3/uL (1.3-2.9); LYMPHOCYTES % (AUTO) 26.1 % (21.0-51.0); MEAN CORPUSCULAR HEMOGLOBIN 33.4 pg (27.0-34.0); MEAN CORPUSCULAR HGB CONC 35.7 g/dL (33.0-35.0); MEAN CORPUSCULAR VOLUME 93.6 fL (80.0-100.0); MEAN PLATELET VOLUME 9.3 fL (7.4-11.0); MONOCYTES # (AUTO) 0.3 x10^3/uL (0.3-0.8); NEUTROPHILS # (AUTO) 4.1 x10^3/uL (2.2-4.8); NEUTROPHILS % (AUTO) 68.6 % (42.0-75.0); PLATELET COUNT 70 X10^3/uL (150.0-450.0); RED BLOOD COUNT 2.84 X10^6/uL (3.5-5.4); RED CELL DISTRIBUTION WIDTH 17.4 % (11.6-16.5)
[2024-06-01 06:28] LABS: ALANINE AMINOTRANSFERASE 21 Units/L (12-78); ALBUMIN 2.6 g/dL (3.4-5.0); ALKALINE PHOSPHATASE 102 Units/L (46-116); ASPARTATE AMINO TRANSFERASE 14 Units/L (15-37); BLOOD UREA NITROGEN 1 mg/dL (7-18); CALCIUM 7.9 mg/dL (8.5-10.1); CARBON DIOXIDE 27.9 mmol/L (21-32); CHLORIDE 106 mmol/L (98-107); CREATININE 0.57 mg/dL (0.55-1.02); GLUCOSE 91 mg/dL (65-99); MAGNESIUM 1.3 mg/dL (2.0-2.9); POTASSIUM 3.3 mmol/L (3.5-5.1); SODIUM 142 mmol/L (136-145); TOTAL PROTEIN 5.4 g/dL (6.4-8.2); eGFR NON BLACK RACES > 60 (>60)
[2024-06-01 10:00] VITALS: RESP 18
[2024-06-01] MEDS ORDERED: CONSULT PHARMACY - POTASSIUM & MAGNESIUM XX SCH (10:00)
[2024-06-01] MEDS: K-DUR TAB 20 MEQ PO ONE (10:21)
[2024-06-01] MEDS: MAG-OX TAB PO SCH (10:21)
[2024-06-01 12:06] VITALS: BP 142/65; PULSE 100; TEMP 98.3
== END 2024-06-01 13:30 | disposition home or self-care (01) | DRG 392 ==
LOC: ER 12:10 → MED/SURG 19:59
PROVIDERS: ADMIT Internal Medicine; ATTEND Internal Medicine
DX: C50.919 Malignant neoplasm of unspecified site of unspecified female breast; R74.02 Elevation of levels of lactic acid dehydrogenase [LDH]; E83.42 Hypomagnesemia; R94.31 Abnormal electrocardiogram [ECG] [EKG]; R10.84 Generalized abdominal pain; Z92.21 Personal history of antineoplastic chemotherapy; Z29.89 Encounter for other specified prophylactic measures; K92.1 Melena; R11.10 Vomiting, unspecified; E87.6 Hypokalemia; K52.89 Other specified noninfective gastroenteritis and colitis; N39.0 Urinary tract infection, site not specified